=== PATIENT | female | born 1975 | race Two or more races ===

== ENCOUNTER 2019-07-28 20:38 | Emergency (ER) | payer MEDICAID ==
[~2019-07-28] VITALS: Ht 165.1 cm; Wt 98.4 kg
[2019-07-28] MEDS ORDERED: MORPHINE SULFATE 4 MG/ML SYR/VIAL IV ONE (23:00)
[2019-07-28] MEDS ORDERED: ONDANSETRON HCL 4 MG/2 ML VIAL IV ONE (23:00)
[2019-07-29] MEDS ORDERED: ETOMIDATE (2MG/ML) 20ML VIAL IV ONE (00:15)
[2019-07-29 03:06] VITALS: BP 129/66
[2019-07-29] MEDS ORDERED: HYDROcodone-ACET 10/325MG TAB ONE (03:12)
[2019-07-29] MEDS ORDERED: HYDROcodone-ACET 10/325MG TAB PO ONE (03:30)
== END 2019-07-29 02:57 | disposition home or self-care (01) ==
LOC: EDBD 20:38 → ER 20:44
DX: S53.104A Unspecified dislocation of right ulnohumeral joint, initial encounter (principal); S30.1XXA Contusion of abdominal wall, initial encounter; Y07.499 Other family member, perpetrator of maltreatment and neglect; Y93.89 Activity, other specified; Y99.8 Other external cause status; Y92.89 Other specified places as the place of occurrence of the external cause
CPT/HCPCS: 24600; 73080; 74176; 96374; 96375; 99284; J2270; J2405